=== PATIENT | female | born 1940 | race Caucasian/White ===

== ENCOUNTER 2018-06-24 11:51 | Emergency (ER) | payer OTHER ==
[~2018-06-24] VITALS: Ht 152.4 cm; Wt 79.0 kg
[2018-06-24] MEDS ORDERED: KETOROLAC 60MG/2ML VIAL IM ONE (12:30)
[2018-06-24] MEDS ORDERED: HYDROCODONE/ACETAMINOPHEN 5/325MG TABLET PO ONE (14:45)
[2018-06-24] MEDS ORDERED: HYDROCODONE/ACETAMINOPHEN 10/325MG TABLET PO ONE (15:15)
[2018-06-24 18:10] VITALS: BP 121/48
== END 2018-06-24 18:10 | disposition home or self-care (01) ==
LOC: ER 11:51
DX: M54.5 Low back pain (principal); M54.16 Radiculopathy, lumbar region; E11.9 Type 2 diabetes mellitus without complications; E78.00 Pure hypercholesterolemia, unspecified; I10 Essential (primary) hypertension; Z96.659 Presence of unspecified artificial knee joint; V43.62XA Car passenger injured in collision with other type car in traffic accident, initial encounter; Y93.89 Activity, other specified; Y92.488 Other paved roadways as the place of occurrence of the external cause
CPT/HCPCS: 72100; 72131; 82962; 96372; 99284; J1885; 99285